=== PATIENT | female | born 1995 | race Caucasian/White ===

== ENCOUNTER 2022-03-30 18:38 | Emergency (ER) | payer BC, SELFPAY ==
--- NOTE | 2022-03-30 18:40 | XRR_ITS ---
PROCEDURE INFORMATION: Exam: XR Left Ankle Exam date and time: 03/30/2022 7:38 PM Age: 26 years old Clinical indication: Injury or trauma; Fall; Blunt trauma; Ankle; Left; Additional info: Trauma/injury TECHNIQUE: Imaging protocol: Radiologic exam of the Left ankle. Views: 3 or more views. COMPARISON: CR (LOW EXM, ) 03/30/2022 7:34 PM FINDINGS: Bones/joints: Normal. No fracture or dislocation is seen in the left ankle. Soft tissues: Normal. XR/XR ankle LT min 3V* [id number] IMPRESSION: No fracture or dislocation.
[2022-03-30 19:13] VITALS: BP 114/77; PULSE 90; RESP 18; TEMP 36.6; O2SAT 97; BMI 33.0
--- NOTE | 2022-03-30 19:26 | XRR_ITS ---
PROCEDURE INFORMATION: Exam: XR Left Foot Exam date and time: 03/30/2022 7:34 PM Age: 26 years old Clinical indication: Injury or trauma; Fall; Blunt trauma; Foot; Left; Additional info: Trauma/injury, preg; Double shielded TECHNIQUE: Imaging protocol: Radiologic exam of the Left foot. Views: 3 or more views. COMPARISON: No relevant prior studies available. FINDINGS: Bones/joints: Normal. No fracture or dislocation is seen in the left foot Soft tissues: Normal. XR/XR foot LT min 3V* [id number] IMPRESSION: No acute finding.
--- NOTE | 2022-03-30 19:27 | ED_ITS ---
HPI - Extremity Injury (Lower) General: Chief Complaint: Extremity Injury, Lower Stated Complaint: Left ankle possible broke Time Seen by Provider: 03/30/22 19:20 Source: patient and family Mode of arrival: wheelchair Limitations: no limitations History of Present Illness: Patient is a nice 26-year-old female who presents to ED today for evaluation of a left foot and ankle injury that she sustained ea rlier today after rolling it . States immediately after the event she was ambulatory minimally but throughout the day pain has progressively worsened to the point where she is no longer Able to bear weight. No other injuries or concerns at this time. MD complaint: ankle injury and foot injury Onset (ago): hour(s) Injury: Left: ankle and foot Severity: moderate Relieving factors: immobilization Exacerbating factors: weight bearing, movement and palpation Context: other (twisting) Associated symptoms: Reports inability to bear weight Review of Systems Musc: Reports: extremity pain (L foot), joint pain (L ankle), joint swelling (L lateral ankle) and limited range of motion; Denies: neck pain, back pain, joint redness or joint warmth Skin/Breast: Denies: rash Neuro: Denies: numbness in extremities, weakness in extremities or sensory changes PFSH ED PFSH: Medical History No pertinent past medical history Family History Other No pertinent family history Social History Smoking and tobacco status: never smoked Alcohol intake: never History of recent travel: No Female Reproductive History: Date of last menstrual period: 01/14/22 Physical Exam Const: COMMON NORMALS: no acute distress, patient oriented x3, no limitations and alert GENERAL APPEARANCE: cooperative Extremity: GENERAL: Yes normal exam except as noted LEFT LOWER EXTREMITY: Yes ankle joint and Yes foot & digits OTHER: TTP L lateral malleolus and base of 5th metatarsal; mild swelling noted w/o bony deformity; extremity NV intact Neuro: COMMON NORMALS: patient oriented x3, moves all extremities, no focal motor deficits and no sensory deficits noted SENSORIUM/ORIENTATION: Yes alert Skin: TRAUMA: no lacerations or abrasions Course Vital Signs: Vital signs: Vital Signs Temperature 97.8 F 03/30/22 19:13 Pulse Rate 90 03/30/22 19:13 Respiratory Rate 18 03/30/22 19:13 Blood Pressure 114/77 03/30/22 19:13 Pulse Oximetry 97 03/30/22 19:13 Oxygen Delivery Me thod 03/30/22 19:13 MDM - Extremity Injury (Lower) Medical Decision Making My personal interpretation of L foot/ankle XRs negative. Will KATIE wrap/crutches/RICE therapy. Follow up with PCP in 1-2 weeks if pain does not seem to be improving. Discharge Plan Discharge Patient Disposition: Home Clinical Impression: Left ankle sprain Qualifiers: Encounter type: initial encounter Involved ligament of ankle: unspecified ligament Qualified Code(s): S93.402A - Sprain of unspecified ligament of left ankle, initial encounter Condition: Stable Prescriptions: No Action adapalene 0.3 % gel 1 applic TOPICAL DAILY Qty: 45 3RF Rx Instructions: Apply pea-sized amount to clean, dry face and neck nightly spironolactone 25 mg tablet 25 mg PO DAILY Qty: 30 2RF Discharge Orders: Discharge ED (Routine); Ordered 03/30/22 Ordered By: Sary Alvarenga Patient Instructions: Ankle Sprain (ED), RICE Therapy Activity Restrictions/Additional Instructions: As we discussed ice and elevate extremity. Weight bearing as tolerated. Tylenol as needed for pain. Follow-up with primary care in 1 to 2 weeks if ankle does not seem to be improving. Coding Level of Care Code ED [employer] Consultant for Danita Fwd Exam Expanded Problem Focused
== END 2022-03-30 21:15 | disposition home or self-care (01) ==
PROVIDERS: Emergency Provider Physician Assistant
DX: S93.402A Sprain of unspecified ligament of left ankle, initial encounter (principal); X50.1XXA Overexertion from prolonged static or awkward postures, initial encounter
CPT/HCPCS: 73610; 73630; 99283; E0114

== ENCOUNTER 2023-12-06 07:37 | Oncology outpatient (recurring) (ONCR) | payer OTHER, SELFPAY ==
[2023-12-06 08:33] LABS: Basophils % 0.2 %; Eosinophils % 0.7 %; Hematocrit 31.5 % (36-47); Lymphocytes # 2.3 10^3/uL (0.8-4.8); Lymphocytes % 42.5 %; Mean Corpuscular HGB Conc 28.3 g/dL (30-55); Mean Corpuscular Hemoglobin 19.6 pg (27-33); Mean Corpuscular Volume 69.4 fl (85-98); Mean Platelet Volume 8.4 fL (7.4-10.4); Monocytes # 0.3 10^3/uL (0.2-0.9); Monocytes % 4.8 %; Neutrophils % 51.6 %; Nucleated Red Blood Cells % 0 %; Platelet Count 428 10^3/cmm (157-399); Red Blood Count 4.54 10^6/uL (3.85-5.65); Red Cell Distribution Width 21.1 % (12.1-15.1); White Blood Count 5.43 10^3/uL (3.29-11.43)
[2023-12-06] MEDS: iron sucrose 500 MG in sodium chloride 0.9% 250 ML 78 MG IV (08:35)
[2023-12-06 08:39] VITALS: BP 104/70; PULSE 85; RESP 16; TEMP 37.2; O2SAT 99
[2023-12-06 08:51] LABS: Ferritin 8 ng/mL (15-150); Iron 18 ug/dL (37-145); Total Iron Binding Capacity 443 mcg/dl; Unsaturated Iron Binding 425 ug/dL (112-347)
[2023-12-06 11:34] VITALS: BP 106/71; PULSE 92; RESP 16; TEMP 36.7; O2SAT 99
== END 2023-12-31 23:59 | disposition home or self-care (01) ==
PROVIDERS: PCP Nurse Practitioner Family; Visit Provider Internal Medicine Medical Oncology
DX: D50.9 Iron deficiency anemia, unspecified (principal); Z53.9 Procedure and treatment not carried out, unspecified reason
CPT/HCPCS: 82728; 83540; 83550; 85025; 96365; 96366; J1756; J7050

== ENCOUNTER → 2025-06-03 16:42 | Outpatient (BNVA) | payer OTHER, SELFPAY | PROVIDERS: PCP Nurse Practitioner Family; Visit Provider Nurse Practitioner Family | DX: Z80.3 Family history of malignant neoplasm of breast (principal) | CPT/HCPCS: 81162 ==

== ENCOUNTER 2025-06-25 08:51 | Outpatient (CLI) | payer OTHER, SELFPAY ==
--- NOTE | 2025-06-25 09:00 | MM_ITS ---
WS: [id number] BILATERAL SCREENING DIGITAL TOMOSYNTHESIS MAMMOGRAM WITH CAD HISTORY: Z80.3 - Family history of malignant neoplasm of breast COMPARISON: None available. Bilateral CC and MLO views with tomosynthesis and synthetic mammography submitted. Computer aided detection analyzed. Breast composition: There are scattered areas of fibroglandular density. No suspicious masses, microcalcifications or architectural distortion. Benign calcifications RIGHT breast. MM/MM scr BI tomosynthesis [id number] IMPRESSION: BI-RADS: 2 - Benign. FOLLOW UP: 1 Year Follow-up
== END 2025-06-25 08:52 | disposition home or self-care (01) ==
LOC: RAD 08:53
PROVIDERS: PCP Nurse Practitioner Family; Visit Provider Nurse Practitioner Family
DX: Z12.31 Encounter for screening mammogram for malignant neoplasm of breast (principal); R92.323 Mammographic fibroglandular density, bilateral breasts; R92.1 Mammographic calcification found on diagnostic imaging of breast
CPT/HCPCS: 77063; 77067